=== PATIENT | female | born 1970 | race African-American/Black ===

== ENCOUNTER → 2017-02-06 19:29 | Outpatient (CLI) | payer BC ==
[2013-06-05 01:51] VITALS: BMI 28.4
[~2017-02-06 19:29] MED LIST: DEXILANT30 MG PO; LISINOPRIL5 MG PO
[2017-02-06 20:49] LABS: APPEARANCE CLEAR (CLEAR); BILIRUBIN NEGATIVE (NEGATIVE); COLOR YELLOW (YELLOW); EPITHELIAL CELLS 0-5 /hpf (0-5); GLUCOSE NEGATIVE (NEGATIVE); KETONE NEGATIVE (NEGATIVE); LEUKOCYTE ESTERASE TRACE (NEGATIVE); NITRITE NEGATIVE (NEGATIVE); PROTEIN NEGATIVE (NEGATIVE); RED CELLS - URINE 0-5 /hpf (0-5); UROBILINOGEN NORMAL (NORMAL); WHITE CELLS - URINE 0-5 /hpf (0-5)
[2017-02-06 20:50] LABS: BACTERIA FEW /hpf (NONE SEEN)
== END | disposition home or self-care (01) ==
LOC: D.LABREF 19:29
PROVIDERS: Urology
DX: N39.0 Urinary tract infection, site not specified (principal)

== ENCOUNTER 2017-02-14 06:36 | Day surgery (SDC) | payer BC ==
[2017-02-13 16:18] LABS: HEMATOCRIT 37.4 % (36.0-48.0); HEMOGLOBIN 11.4 g/dL (12-16); MCH 24.3 pg (26.0-34.0); MCHC 30.5 g/dL (31.0-37.0); MCV 79.6 fL (80.0-100.0); MEAN PLATELET VOLUME 11.2 fL (7.4-10.4); RBC 4.7 10x6/uL (4.00-5.40); RDW 15.4 % (11.5-14.5); WBC 5.9 10x3/uL (4.8-10.8)
[~2017-02-14] VITALS: Ht 154.9 cm; Wt 70.3 kg
[~2017-02-14 06:36] MED LIST changes: +NP THYROID30 MG PO; +PROTONIX40 MG PO; +TENORMIN25 MG PO
[2017-02-14 08:38] VITALS: BP 142/85; Ht 154.9 cm; Wt 70.3 kg
--- NOTE | 2017-02-14 17:44 | NUR ---
1445- PT BACK, WITH HOB ELEVATED. A BIT DROWSY. ROUSES WITH VERBAL STIMULI. WAS ASSISTED TO BR AND VOIDED WITHOUT DIFFICULTY 1515- FULL LIQUIDS TOLERATED. 1610- IV D/C'D, CATHETER INTACT. 1625- DISCHARGE INSTRUCTIONS COMPLETED. PAPERWORK SIGNED. 1630- PT DISCHARGED VIA WHEELCHAIR WITH FAMILY.
== END 2017-02-14 16:30 | disposition home or self-care (01) ==
LOC: D.OPS 06:36 → D.PAN 10:00 → D.OPS 12:00 → D.PAN 03-14 09:00
PROVIDERS: Anesthesiology
DX: N30.10 Interstitial cystitis (chronic) without hematuria (principal); Z01.812 Encounter for preprocedural laboratory examination

== ENCOUNTER → 2017-02-22 19:44 | Outpatient (CLI) | payer BC ==
[2017-02-14 08:38] VITALS: BMI 29.3
[2017-02-22 19:57] LABS: APPEARANCE CLEAR (CLEAR); BILIRUBIN NEGATIVE (NEGATIVE); COLOR YELLOW (YELLOW); GLUCOSE NEGATIVE (NEGATIVE); KETONE NEGATIVE (NEGATIVE); LEUKOCYTE ESTERASE NEGATIVE (NEGATIVE); NITRITE NEGATIVE (NEGATIVE); PROTEIN NEGATIVE (NEGATIVE); SPECIFIC GRAVITY 1.015 (1.005-1.020); UROBILINOGEN NORMAL (NORMAL)
== END | disposition home or self-care (01) ==
LOC: D.LABREF 19:44
PROVIDERS: Urology
DX: N39.0 Urinary tract infection, site not specified (principal)